=== PATIENT | female | born 1995 | race African-American/Black ===

== ENCOUNTER 2020-08-09 09:23 | Emergency (ER) | payer OTHER, SELFPAY ==
--- NOTE | ~2020-08-09 | US_ITS ---
EXAMINATION: US ABDOMEN LIMITED CLINICAL INFORMATION: Right upper quadrant pain. COMPARISON: CT abdomen and pelvis with IV contrast 08/09/2020. TECHNIQUE: Real-time imaging of the right upper quadrant abdominal viscera. FINDINGS: PANCREAS: The pancreas is normal in size and contour and echogenicity. There is no pancreatic ductal distention or visible retroperitoneal effusion. LIVER: The liver is within normal size and is smooth in contour. Parenchymal echogenicity is homogeneous and within normal. There is no focal hepatic parenchymal lesion. Doppler shows portal flow towards the liver. There is no intrahepatic ductal dilatation. GALLBLADDER: Normal. The gallbladder is physiologically distended without evidence of stones, sludge, polyps, wall thickening or pericholecystic fluid. Negative sonographic Culp's sign. COMMON BILE DUCT: Normal in caliber measuring 0.3 cm in diameter. RIGHT KIDNEY: Normal. No hydronephrosis. No renal calculi or focal parenchymal lesions. The kidney measures 10.0 cm in maximum dimension. FREE FLUID: None. US/US abdomen limited IMPRESSION: No cholelithiasis, gallbladder wall thickening, or ductal dilatation.
--- NOTE | ~2020-08-09 | CT_ITS ---
EXAMINATION: CT ABDOMEN AND PELVIS WITH CONTRAST CLINICAL INFORMATION: Right upper quadrant/flank pain COMPARISON: None TECHNIQUE: Multidetector volumetric images were obtained from the superior aspect of the liver through the pubic symphysis following administration 85 mL of Omnipaque 350 intravenous contrast. Sagittal and coronal reformatted images were obtained on the technologist's workstation. Oral contrast: No This CT examination was performed using dose optimization techniques as appropriate, variously including the following: *Automated exposure control *Adjustment of mA and/or kV according to patient size (this includes techniques or standardized protocols for targeted exams where dose is matched to indication/reason for exam; i.e. extremities or head) *Use of iterative reconstruction technique DLP: 396 mGy-cm FINDINGS: LUNG BASES: The lung bases are clear. The heart size is normal. LIVER, GALLBLADDER, AND BILIARY TREE: The liver is normal in size, shape, and attenuation. No focal hepatic lesion or biliary ductal dilatation is present. The gallbladder is unremarkable with no evidence of radiopaque gallstones, gallbladder wall thickening, or obvious pericholecystic inflammatory changes. PANCREAS: Unremarkable. SPLEEN: Unremarkable. ADRENAL GLANDS: Unremarkable. KIDNEYS AND URETERS: The kidneys are normal in size, shape, and attenuation. No hydronephrosis, hydroureter, or calculi seen. No perinephric stranding. BLADDER: Unremarkable. GASTROINTESTINAL TRACT: There is moderate scattered stool and gas seen throughout the colon without significant distention. Small bowel loops are normal caliber. Appendix is not seen well. No inflammatory process seen abdomen. There is no free air or free fluid. ABDOMINAL WALL: No significant hernia is appreciated. LYMPH NODES: Normal. VASCULAR: The abdominal aorta is normal caliber. There is no aneurysmal dilatation seen. PELVIC VISCERA: The uterus is anteverted and appears unremarkable. No free fluid or free air. OSSEOUS STRUCTURES: No gross bony abnormality seen. CT/CT abdomen pelvis w con IMPRESSION: Moderate constipation. No acute intra-abdominal process seen. There are no radiopaque gallstones or renal calculi.
[2020-08-09 09:38] VITALS: BP 117/72; PULSE 84; RESP 19; TEMP 37.2; O2SAT 100; BMI 26.4
[2020-08-09] MEDS: Ketorolac Tromethamine 30 MG/ML VIAL IVPUSH (10:09)
[2020-08-09] MEDS: 0.9 % Sodium Chloride 1,000 ML 999 ML IVCONT (10:11)
[2020-08-09 10:13] LABS: Basophils Percent Auto 0.3 % (0-2); Eosinophils Absolute Auto 0.1 X10*3/uL (0.0-0.4); Eosinophils Percent Auto 1.3 % (0-4); Hematocrit 36.2 % (37-47); Hemoglobin 12.3 g/dl (12.0-16.0); Imm Gran Abs Auto 0.01 X10*3/uL (0.00-0.03); Imm Gran Pct Auto 0.3 % (0.0-0.4); Lymphocytes Absolute Auto 1.4 X10*3/uL (1.2-4.9); Lymphocytes Percent Auto 36.8 % (20-40); MANUAL DIFF FLAG SCAN; Mean Corpuscular Hemoglobin 32.1 pg (27.0-33.0); Mean Corpuscular Volume 94.5 fL (80-98); Monocytes Absolute Auto 0.5 X10*3/uL (0.1-1.2); Monocytes Percent Auto 12.4 % (2-11); Neutrophils Absolute Auto 1.9 X10*3/uL (2.0-8.3); Neutrophils Percent Auto 48.9 % (45-73); Platelet Count 196 X10*3/uL (160-400); Red Blood Count 3.83 X10*6/uL (4.20-5.50); Red Cell Distribution Width 11.9 % (11.0-16.0); SCAN SMEAR FLAG 1; White Blood Count 3.8 X10*3/uL (4.8-10.8)
[2020-08-09 10:18] LABS: Glucose Urine UA NEG (NEG); Leukocyte Esterase Urine NEG (NEG); Nitrite Urine NEG (NEG); Specific Gravity - Urine >= 1.030 (1.005-1.025); Urine Blood 3+ (NEG); Urine Ketones NEG (NEG); Urine Protein NEG (NEG-TRACE)
[2020-08-09 10:20] LABS: UPreg QC Valid YES; Urine Pregnancy NEGATIVE (NEGATIVE)
[2020-08-09 10:21] LABS: Appearance Urine HAZY; Color Urine YELLOW
[2020-08-09 10:32] LABS: Mucus Urine 1+ /LPF; RBC Urine TNTC /HPF (0); Squamous Epithelial Cell Urine 1+ /LPF; WBC Urine 0 /HPF (0-4)
[2020-08-09 10:38] LABS: SLIDE REVIEW VERIFIED
[2020-08-09 10:48] LABS: HCG Quantitative < 2 mIU/mL
[2020-08-09 11:27] LABS: Alanine Aminotransferase 18 U/L (0-31); Albumin Level 3.9 g/dL (3.5-5.0); Alkaline Phosphatase 55 U/L (39-117); Anion Gap 12 (12-20); Aspartate Amino Transferase 19 U/L (5-31); Bilirubin Total 1.2 mg/dL (0.0-1.0); Blood Urea Nitrogen 9 mg/dL (9-16); Calcium 8.9 mg/dL (8.4-10.2); Carbon Dioxide 24 mmol/L (22-29); Chloride 104 mmol/L (96-108); Creatinine Clr Calc Pharmacy 85.9; Estimated Glomerular Filt Rate > 60; Glucose Random 93 mg/dL (60-115); Lactate Dehydrogenase 248 U/L (122-220); Magnesium 1.8 mg/dL (1.6-2.6); Potassium 3.9 mmol/L (3.3-5.1); Sodium 136 mmol/L (135-145); Total Protein 6.5 g/dL (6.5-8.0)
--- NOTE | 2020-08-09 11:27 | ED.ABDPAIN ---
HPI - Abdominal Pain General Chief Complaint: Abdominal Pain Stated Complaint: flank pain Time Seen by Provider: 08/09/20 09:26 Source: patient Mode of arrival: ambulatory Limitations: no limitations History of Present Illness HPI narrative: 24-year-old female with a past medical history of pericarditis no other medical history or surgical history presenting to the ED with complaints of abdominal pain in the right back/right flank/right upper quadrant over the past 4 days worse since last night with associated chills and constipation. Reports she did have a bowel movement although it was small amount this morning with hard little balls. Denies any measured fevers, dizziness, headaches, lightheadedness, change in vision, nausea/vomiting, sore throat, cough, chest pain, shortness of breath, dysuria, hematuria, black or bloody stools or diarrhea. Denies recent travel or sick contacts. Denies being on any blood thinners. Denies any other symptoms complaints or concerns at this time. MD elicited complaint: abdominal pain and flank pain Pertinent past history: none Onset (ago): day(s) (Four days worse since last night) Pain Consistency: constant Location: RUQ and R flank Severity: moderate Quality: burning and other Radiation: none Migration to: no migration Exacerbating factors: nothing Relieving factors: nothing Associated symptoms: chills and constipation Related Data Date of Last Menstrual Period: 08/09/20 Patient : No Previous Rx's Medication Instructions Recorded acetaminophen [Tylenol Extra 1,000 mg PO QID PRN #14 tab 08/09/20 Strength] docusate sodium [Colace] 100 mg PO BID PRN #14 cap 08/09/20 ibuprofen 800 mg PO Q8H PRN #14 tab 08/09/20 ondansetron HCl [Zofran] 4 mg PO Q8H PRN #14 tab 08/09/20 polyethylene glycol 3350 [Miralax] 17 g PO DAILY #119 g 08/09/20 Allergies Allergy/AdvReac Type Severity Reaction Status Date / Time No Known Allergies Allergy Unverified 12/16/19 19:24 [No Known Allergies*] Review of Systems Review of Systems Constitutional : Positive chills, No Weight loss, No Fever, No Night Sweats, No Fatigue, NoMalaise ENT/Mouth: No ear pain, No sore throat, No Difficulty swallowing Cardiovascular : No Chest Pain, No SOB, No Dyspnea on Exertion, No Orthopnea, NoEdema, No Palpitations Respiratory : No Cough, No Sputum, No Wheezing, No Dyspnea Gastrointestinal : Positive abdominal pain/flank pain, positive constipation, No Nausea, No Vomiting, No Diarrhea, No blood streaked emesis, No coffee-ground emesis, No gross hematemesis, No blood streak stool, No gross hematochezia, No Melena Genitourinary : No irregular bleeding, No Dysuria, No Urinary Frequency, No Hematuria,No Urinary Incontinence, No Urgency, No Flank Pain Musculoskeletal : No joint pain, No Myalgias, No Joint Swelling Skin : No Skin Lesions, No rash Neuro : No Weakness, No Numbness, No Paresthesias, No Loss of Consciousness, NoDizziness, No Headache Psych : No Social Issues, Heme/Lymph: No Bruising, No Bleeding,No Lymphadenopathy Endocrine : No Polyuria, No Polydipsia, No Temperature Intolerance Yes all other systems are reviewed and are negative Physical Exam Vital Signs: Vital Signs: Last Vital Signs Temp 98.6 F 08/09/20 13:21 Pulse 69 08/09/20 13:21 Resp 18 08/09/20 13:21 BP 113/67 08/09/20 13:21 Pulse Ox 97 08/09/20 13:21 Body Mass Index 26.4 vital signs have been reviewed as normal and appeared to be correct. Blood pressure normal. Heart rate normal. Respiration rate normal. Temperature normal. Oxygen saturation normal. Appearance: Alert. Oriented X3. No acute distress. Head: Normal external exam. Normocephalic. Eyes: PERRLA. EOMI. Conjunctiva and sclera normal. Eyelids normal. ENT: Pharynx normal. Uvula midline. Moist mucous membranes. Neck: Normal inspection. Neck supple. FROM. No adenopathy. No meningeal signs. CVS: Normal heart rate and rhythm. Heart sound normal. No murmurs noted. Pulses normal throughout. Respiratory: No respiratory distress. Painless inspiration. Breath sounds normal. No wheezes/rales/rhonchi noted. Chest nontender. No accessory muscle usage noted or decreased air movement noted. Abdomen: Soft and mild tenderness to palpation to right flank/right upper quadrant/right lower quadrant of the abdomen. Nondistended. No guarding. No rigidity. Bowel sounds normal in all 4 quadrants. No distention noted. No organomegaly noted. No visible injury noted. No rebound tenderness. Negative Rovsing sign. Negative obturator's sign. Negative psoas sign. Negative Culp sign. Back: Positive CVA tenderness. Negative left CVA tenderness. Full range of motion noted. Skin: Skin warm and dry. Normal skin color. Normal skin turgor. No rashes/lesions/lacerations noted. Extremities: Extremities exhibit normal range of motion. Extremities nontender. Neuro: Oriented X 3. No motor deficit. No sensory deficit. Reflexes normal. Normal steady gait. Course Course Course Narrative: 15pm - labs reviewed and patient with a white blood cell count at 3000. Total bilirubin 1.2. LDH 248. Lipase 80. Serum quant negative. UA revealed blood otherwise no evidence of UTI. CT scan of abdomen and pelvis revealed constipation moderately although they were unable to see the appendix. Ultrasound of abdomen within normal limits no acute processes were noted. Therefore re-examine the patient and she was tender in the right upper/right lower quadrant/right flank therefore ran this by Dr. Deutsch the general surgeon and she reviewed the imaging she reports that the patient has been having symptoms for approximately 4 days and she reviewed all the images and she agrees with the report she believes early appendicitis is unlikely at this time. - therefore at this time will DC home with symptomatic treatment and return precautions in 24 hours if symptoms persist or symptoms worsen. Patient understands agrees with this plan. MDM - Abdominal Pain MDM Narrative Medical decision making narrative: 9:30am - 24-year-old female presenting to the ED with complaints of abdominal pain in the right back/right flank/right upper quadrant over the past 4 days worse since last night with associated chills and constipation. - Concern for UTI vs pyelonephritis vs kidney stone vs cholelithiasis vs pancreatitis vs appendicitis. - Plan: Labs, UA, UHCG, CT scan of abdomen and pelvis with IV contrast. Provide a L of IV fluids and 30 mg of IV Toradol then re-evaluate. Differential Diagnosis Differential diagnosis: Likely acute appendicitis, calculus of kidney, constipation, ovarian cyst, pancreatitis and renal colic Medical Records Attestation: I reviewed the patient's medical records. Lab Data Attestation: I reviewed the patient's lab results. Result diagrams: 08/09/20 10:05 08/09/20 10:05 Labs: Lab Results 08/09/20 08/09/20 08/09/20 Range/Units 10:04 10:05 10:05 WBC 3.8 L (4.8-10.8) X10*3/uL RBC 3.83 L (4.20-5.50) X10*6/uL Hgb 12.3 (12.0-16.0) g/dl Hct 36.2 L (37-47) % MCV 94.5 (80-98) fL MCH 32.1 (27.0-33.0) pg MCHC 34.0 (31.0-35.0) g/dl RDW 11.9 (11.0-16.0) % Plt Count 196 (160-400) X10*3/uL MPV 9.0 L (9.4-12.3) fL Immature Gran % (Auto) 0.3 (0.0-0.4) % Neut % (Auto) 48.9 (45-73) % Lymph % (Auto) 36.8 (20-40) % [place] % (Auto) 12.4 H (2-11) % Eos % (Auto) 1.3 (0-4) % Baso % (Auto) 0.3 (0-2) % Lymph # (Auto) 1.4 (1.2-4.9) X10*3/uL [place] # (Auto) 0.5 (0.1-1.2) X10*3/uL Eos # (Auto) 0.1 (0.0-0.4) X10*3/uL Baso # (Auto) 0.0 (0.0-0.2) X10*3/uL Abs Immat Gran (auto) 0.01 (0.00-0.03) X10*3/uL Absolute Neuts (auto) 1.9 L (2.0-8.3) X10*3/uL Absolute Nucleated RBC 0.000 (0.0-0.012) X10*3/uL Nucleated RBC % (auto) 0.0 (0.0-0.2) /100WBC Smear Tech's Comments VERIFIED PT (10.8-13.0) SEC INR (0.9-1.1) Sodium 136 (135-145) mmol/L Potassium 3.9 (3.3-5.1) mmol/L Chloride 104 (96-108) mmol/L Carbon Dioxide 24 (22-29) mmol/L Anion Gap 12 (12-20) BUN 9 (9-16) mg/dL Creatinine 0.87 (0.5-1.4) mg/dL Estim Creat Clear Calc 85.9 Estimated GFR > 60 Random Glucose 93 (60-115) mg/dL Calcium 8.9 (8.4-10.2) mg/dL Magnesium 1.8 (1.6-2.6) mg/dL Total Bilirubin 1.2 H (0.0-1.0) mg/dL AST 19 (5-31) U/L ALT 18 (0-31) U/L Alkaline Phosphatase 55 (39-117) U/L Lactate Dehydrogenase Cancelled 248 H Total Protein 6.5 (6.5-8.0) g/dL Albumin 3.9 (3.5-5.0) g/dL Lipase 80 H (8-78) U/L Beta HCG, Quant < 2 mIU/mL Urine Color Urine Appearance Urine pH (5.0-8.0) Ur Specific [place] (1.005-1.025) Urine Protein (NEG-TRACE) MG/DL Urine Glucose (UA) (NEG) MG/DL Urine Ketones (NEG) MG/DL Urine Blood (NEG) Urine Nitrite (NEG) Ur Leukocyte Esterase (NEG) Urine RBC (0) /HPF Urine WBC (0-4) /HPF Ur Squamous Epith Cells /LPF Urine Bacteria /LPF Urine Mucus /LPF Urine Test (NEGATIVE) 08/09/20 08/09/20 08/09/20 Range/Units 10:05 10:05 12:27 WBC (4.8-10.8) X10*3/uL RBC (4.20-5.50) X10*6/uL Hgb (12.0-16.0) g/dl Hct (37-47) % MCV (80-98) fL MCH (27.0-33.0) pg MCHC (31.0-35.0) g/dl RDW (11.0-16.0) % Plt Count (160-400) X10*3/uL MPV (9.4-12.3) fL Immature Gran % (Auto) (0.0-0.4) % Neut % (Auto) (45-73) % Lymph % (Auto) (20-40) % [place] % (Auto) (2-11) % Eos % (Auto) (0-4) % Baso % (Auto) (0-2) % Lymph # (Auto) (1.2-4.9) X10*3/uL [place] # (Auto) (0.1-1.2) X10*3/uL Eos # (Auto) (0.0-0.4) X10*3/uL Baso # (Auto) (0.0-0.2) X10*3/uL Abs Immat Gran (auto) (0.00-0.03) X10*3/uL Absolute Neuts (auto) (2.0-8.3) X10*3/uL Absolute Nucleated RBC (0.0-0.012) X10*3/uL Nucleated RBC % (auto) (0.0-0.2) /100WBC Smear Tech's Comments PT 14.5 H (10.8-13.0) SEC INR 1.2 H (0.9-1.1) Sodium (135-145) mmol/L Potassium (3.3-5.1) mmol/L Chloride (96-108) mmol/L Carbon Dioxide (22-29) mmol/L Anion Gap (12-20) BUN (9-16) mg/dL Creatinine (0.5-1.4) mg/dL Estim Creat Clear Calc Estimated GFR Random Glucose (60-115) mg/dL Calcium (8.4-10.2) mg/dL Magnesium (1.6-2.6) mg/dL Total Bilirubin (0.0-1.0) mg/dL AST (5-31) U/L ALT (0-31) U/L Alkaline Phosphatase (39-117) U/L Lactate Dehydrogenase Total Protein (6.5-8.0) g/dL Albumin (3.5-5.0) g/dL Lipase (8-78) U/L Beta HCG, Quant mIU/mL Urine Color YELLOW Urine Appearance HAZY Urine pH 6.0 (5.0-8.0) Ur Specific [place] >= 1.030 H (1.005-1.025) Urine Protein NEG (NEG-TRACE) MG/DL Urine Glucose (UA) NEG (NEG) MG/DL Urine Ketones NEG (NEG) MG/DL Urine Blood 3+ H (NEG) Urine Nitrite NEG (NEG) Ur Leukocyte Esterase NEG (NEG) Urine RBC TNTC H (0) /HPF Urine WBC 0 (0-4) /HPF Ur Squamous Epith Cells 1+ /LPF Urine Bacteria NONE /LPF Urine Mucus 1+ /LPF Urine Test NEGATIVE (NEGATIVE) Imaging Data CT scan of abdomen pelvis with IV contrast: Attestation: I personally reviewed and interpreted this imaging study as follows: Radiologist's impression: FINDINGS: LUNG BASES: The lung bases are clear. The heart size is normal. LIVER, GALLBLADDER, AND BILIARY TREE: The liver is normal in size, shape, and attenuation. No focal hepatic lesion or biliary ductal dilatation is present. The gallbladder is unremarkable with no evidence of radiopaque gallstones, gallbladder wall thickening, or obvious pericholecystic inflammatory changes. PANCREAS: Unremarkable. SPLEEN: Unremarkable. ADRENAL GLANDS: Unremarkable. KIDNEYS AND URETERS: The kidneys are normal in size, shape, and attenuation. No hydronephrosis, hydroureter, or calculi seen. No perinephric stranding. BLADDER: Unremarkable. GASTROINTESTINAL TRACT: There is moderate scattered stool and gas seen throughout the colon without significant distention. Small bowel loops are normal caliber. Appendix is not seen well. No inflammatory process seen abdomen. There is no free air or free fluid. ABDOMINAL WALL: No significant hernia is appreciated. LYMPH NODES: Normal. VASCULAR: The abdominal aorta is normal caliber. There is no aneurysmal dilatation seen. PELVIC VISCERA: The uterus is anteverted and appears unremarkable. No free fluid or free air. OSSEOUS STRUCTURES: No gross bony abnormality seen. CT/CT abdomen pelvis w con IMPRESSION: Moderate constipation. No acute intra-abdominal process seen. There are no radiopaque gallstones or renal calculi. Abdominal ultrasound: Attestation: I personally reviewed and interpreted this imaging study as follows: Radiologist's impression: FINDINGS: PANCREAS: The pancreas is normal in size and contour and echogenicity. There is no pancreatic ductal distention or visible retroperitoneal effusion. LIVER: The liver is within normal size and is smooth in contour. Parenchymal echogenicity is homogeneous and within normal. There is no focal hepatic parenchymal lesion. Doppler shows portal flow towards the liver. There is no intrahepatic ductal dilatation. GALLBLADDER: Normal. The gallbladder is physiologically distended without evidence of stones, sludge, polyps, wall thickening or pericholecystic fluid. Negative sonographic Culp's sign. COMMON BILE DUCT: Normal in caliber measuring 0.3 cm in diameter. RIGHT KIDNEY: Normal. No hydronephrosis. No renal calculi or focal parenchymal lesions. The kidney measures 10.0 cm in maximum dimension. FREE FLUID: None. US/US abdomen limited IMPRESSION: No cholelithiasis, gallbladder wall thickening, or ductal dilatation. Critical Care Time Critical Care Time Critical Care Time: Yes Total Critical Care Time: 60 Attestation: I personally attest to this time spent taking care of the patient Discharge Plan Discharge Clinical Impression: Constipation, Abdominal pain Patient Disposition: Home, Self-Care Instructions: Constipation (ED), High Fiber Diet (ED), Abdominal Pain (ED) Prescriptions: New docusate sodium [Colace] 100 mg capsule 100 mg PO BID PRN (Reason: Constipation) Qty: 14 RF: 0 polyethylene glycol 3350 [Miralax] 17 gram/dose powder 17 g PO DAILY Qty: 119 RF: 0 ibuprofen 800 mg tablet 800 mg PO Q8H PRN (Reason: pain) Qty: 14 RF: 0 ondansetron HCl [Zofran] 4 mg tablet 4 mg PO Q8H PRN (Reason: nausea and vomiting) Qty: 14 RF: 0 acetaminophen [Tylenol Extra Strength] 500 mg tablet 1,000 mg PO QID PRN (Reason: fever or pain) Qty: 14 RF: 0 Referrals: Physician,None [Primary Care Provider] - 2 days (Your PCP) Stand Alone Forms: Work/School Release Print Language: Turkmen [facility] Past Medical History Attestation statement: The following information was validated with the patient. Date of Last Menstrual Period: 08/09/20 Social History Social History Advance Directives: No Advance Directives Information Provided: No Patient : No
[2020-08-09 11:43] LABS: Lipase 80 U/L (8-78)
[2020-08-09] MEDS: iohexoL 350 MG/ML 100 ML INFUS..BTL IV (12:08)
[2020-08-09 12:50] LABS: INTERNATIONAL NORM RATIO 1.2 (0.9-1.1); Prothrombin Time 14.5 SEC (10.8-13.0)
[2020-08-09 13:21] VITALS: BP 113/67; PULSE 69; RESP 18; TEMP 37; O2SAT 97
== END 2020-08-09 15:55 | disposition home or self-care (01) ==
PROVIDERS: Physician Assistant Medical; Emergency Provider Emergency Medicine Emergency Medical Services
DX: K59.00 Constipation, unspecified (principal); R10.9 Unspecified abdominal pain; R68.83 Chills (without fever); D72.819 Decreased white blood cell count, unspecified
CPT/HCPCS: 36415; 74177; 76705; 80053; 81001; 81025; 83615; 83690; 83735; 84702; 85025; 85610; 96361; 96374; 99283; 99291; J1885; Q9967

== ENCOUNTER 2020-08-14 16:41 | Emergency (ER) | payer OTHER, SELFPAY ==
[2020-08-14 19:40] VITALS: BP 117/78; PULSE 91; RESP 18; TEMP 36.9; O2SAT 99; BMI 26.4
--- NOTE | 2020-08-14 20:38 | ED_ITS ---
HPI - URI/Sore Throat General Chief Complaint: Upper Respiratory Symptoms Stated Complaint: sore throat diff breathing, cough Source: patient Mode of arrival: ambulatory Limitations: no limitations History of Present Illness HPI Narrative: 24-year-old female with no significant past medical history presents with sore throat and intermittent shortness of breath. She states that she has noted her tonsils to have white spots but denies having fevers or chills. MD elicited complaint: sore throat Onset (ago): day(s) (For) Consistency: constant Severity: moderate Pain scale (0-10): 7 Able to tolerate fluids by mouth: Yes Exacerbating factors: swallowing and speaking Relieving factors: gargling Associated symptoms: shortness of breath Treatments prior to arrival: acetaminophen and ibuprofen Related Data Previous Rx's Medication Instructions Recorded acetaminophen [Tylenol Extra 1,000 mg PO QID PRN #14 tab 08/09/20 Strength] docusate sodium [Colace] 100 mg PO BID PRN #14 cap 08/09/20 ibuprofen 800 mg PO Q8H PRN #14 tab 08/09/20 ondansetron HCl [Zofran] 4 mg PO Q8H PRN #14 tab 08/09/20 polyethylene glycol 3350 [Miralax] 17 g PO DAILY #119 g 08/09/20 amoxicillin-pot clavulanate 1 tab PO Q12H 10 Days #20 tab 08/14/20 [Augmentin] lidocaine HCl [Lidocaine Viscous] 1 appl MUCOUS MEMBRANE TID PRN 08/14/20 #100 ml prednisone 60 mg PO DAILY 5 Days #15 tab 08/15/20 Allergies Allergy/AdvReac Type Severity Reaction Status Date / Time No Known Allergies Allergy Verified 08/14/20 19:39 [No Known Allergies*] Review of Systems Review of Systems: Constitutional: No Fever, No Chills ENT/Mouth: No Ear Pain, No Hoarseness, positive sore throat Eyes: No Eye Pain, No Swelling, No Redness, No Foreign Body Cardiovascular: No Chest Pain, positive intermittent SOB Respiratory: No Cough, No Dyspnea Gastrointestinal: No Nausea, No Vomiting, No Diarrhea, No abdominal Pain Genitourinary: No Dysuria, No Hematuria Musculoskeletal: No joint pain, No Myalgias, No Joint Swelling Skin: No Skin lacerations, No rash Neuro: No Weakness, No Numbness, No Paresthesias, No Loss of Consciousness, No Dizziness, No Headache Psych: No Anxiety/Panic, No Depression Heme/Lymph: no easy bruising, no Lymphadenopathy Endocrine: No Polyuria, No Polydipsia Yes all other systems are reviewed and are negative [facility] Past Medical History Attestation statement: The following information was validated with the patient. Source: old records reviewed Medical History (Updated 08/15/20 @ 00:01 by Cristina Adan) No known health problems Social History Social History Advance Directives: No Advance Directives Information Provided: No Patient : No Physical Exam Vital Signs: Vital Signs: Last Vital Signs Temp 99.4 F 08/14/20 21:19 Pulse 81 08/14/20 21:19 Resp 20 08/14/20 21:19 BP 135/80 08/14/20 21:19 Pulse Ox 100 08/14/20 21:19 Body Mass Index 26.4 Appearance: Alert. Oriented X3. No acute distress. Eyes: Pupils equal, round and reactive to light. ENT: Pharynx erythematous with bilateral tonsillar exudates. No cervical lymphadenopathy noted. Neck: Normal inspection. Neck supple. CVS: Normal heart rate and rhythm. Pulses normal. Respiratory: No respiratory distress. Breath sounds normal. Abdomen: Soft and nontender. Skin: Skin warm and dry. Normal skin color. Normal skin turgor. Extremities: No lower extremity edema. Neuro: No motor deficit. No sensory deficit. Course Course Course Narrative: 24-year-old female presents with sore throat with white tonsillar exudates. COVID tested negative, will order strep and mono test. Strep is positive, will treat with Augmentin and lidocaine gargle. Patient verbalized understanding of and agrees to plan of care discharge home. 1:40 a.m. it is noted the patient does have a positive mono, I did call to info rm her of the results. Will add prednisone 60 mg for the next 5 days. Patient verbalized understanding of need for further follow-up with primary care physician, and no contact sports. MDM - URI/Sore Throat Differential Diagnosis Differential diagnosis: Likely upper respiratory infection, sinusitis, viral infection, bronchitis, influenza and pharyngitis Medical Records Attestation: I reviewed the patient's medical records. Lab Data Attestation: I reviewed the patient's lab results. Labs: Lab Results 08/14/20 08/14/20 08/14/20 Range/Units 20:34 21:14 21:14 COVID-19 (TERRENCE) Negative (Negative) COVID-19 Clin Com See Note Monoscreen Positive A (Negative) S. pyogenes GrpA RACHEL Positive A (Negative) Discharge Plan Discharge Clinical Impression: Acute streptococcal pharyngitis Patient Disposition: Home, Self-Care Instructions: Strep Throat (ED) Additional Instructions: You were evaluated for throat pain. Your strep test is positive. Please take Augmentin twice a day for the next 10 days. Finish the entire course of this antibiotic. Use viscous lidocaine for pain. Use this medication sparingly. Thank you for choosing this emergency department for evaluation. Please follow-up with primary care physician as needed. Return to the emergency department for any new, concerning, or worsening symptoms. Prescriptions: New amoxicillin-pot clavulanate [Augmentin] 875-125 mg tablet 1 tab PO Q12H 10 Days Qty: 20 RF: 0 lidocaine HCl [Lidocaine Viscous] 2 % solution 1 appl mucous membrane TID PRN (Reason: pain) Qty: 100 RF: 0 prednisone 20 mg tablet 60 mg PO DAILY 5 Days Qty: 15 RF: 0 No Action docusate sodium [Colace] 100 mg capsule 100 mg PO BID PRN (Reason: Constipation) Qty: 14 RF: 0 polyethylene glycol 3350 [Miralax] 17 gram/dose powder 17 g PO DAILY Qty: 119 RF: 0 ibuprofen 800 mg tablet 800 mg PO Q8H PRN (Reason: pain) Qty: 14 RF: 0 ondansetron HCl [Zofran] 4 mg tablet 4 mg PO Q8H PRN (Reason: nausea and vomiting) Qty: 14 RF: 0 acetaminophen [Tylenol Extra Strength] 500 mg tablet 1,000 mg PO QID PRN (Reason: fever or pain) Qty: 14 RF: 0 Stand Alone Forms: Work/School Release Interventions: ED Discharge Assessment Last Done: 08/14/20 22:50 Discharge Date/Time: 08/14/20 22:52
[2020-08-14 20:58] LABS: COVID-19 Test Negative (Negative)
[2020-08-14] MEDS: Ibuprofen 600 MG TABLET PO (21:10)
[2020-08-14] MEDS: Lidocaine HCl Viscous 2 % 15 ML SOLUTION MUCOUS MEM (21:10)
[2020-08-14 21:19] VITALS: BP 135/80; PULSE 81; RESP 20; TEMP 37.4; O2SAT 100
[2020-08-14 21:49] LABS: Strep A Nucleic Acid Positive (Negative)
[2020-08-14 22:05] LABS: Monotest Positive (Negative)
[2020-08-14] MEDS: Amoxicillin/Potassium Clav 875 MG TABLET PO (22:49)
== END 2020-08-14 22:52 | disposition home or self-care (01) ==
PROVIDERS: Nurse Practitioner Family; Emergency Provider Emergency Medicine Emergency Medical Services
DX: J02.0 Streptococcal pharyngitis (principal); Z20.822 Contact with and (suspected) exposure to COVID-19
CPT/HCPCS: 36415; 86308; 87635; 87651; 99283; 99284

== ENCOUNTER 2021-05-21 21:43 | Emergency (ER) | payer OTHER, SELFPAY ==
--- NOTE | ~2021-05-21 | CT_ITS ---
EXAMINATION: CT ABDOMEN AND PELVIS WITH CONTRAST CLINICAL INFORMATION: Left upper quadrant pain COMPARISON: CT from 08/09/2020 TECHNIQUE: Multidetector volumetric images were obtained from the superior aspect of the liver through the pubic symphysis following administration 85 mL of Omnipaque 350 intravenous contrast. Sagittal and coronal reformatted images were obtained on the technologist's workstation. Oral contrast: No This CT examination was performed using dose optimization techniques as appropriate, variously including the following: *Automated exposure control *Adjustment of mA and/or kV according to patient size (this includes techniques or standardized protocols for targeted exams where dose is matched to indication/reason for exam; i.e. extremities or head) *Use of iterative reconstruction technique DLP: 423 mGy-cm FINDINGS: LUNG BASES: The visualized lung bases are unremarkable. LIVER, GALLBLADDER, AND BILIARY TREE: The liver is normal in size, shape, and attenuation. No focal hepatic lesion or biliary ductal dilatation is present. The gallbladder is contracted with no evidence of radiopaque gallstones, gallbladder wall thickening, or obvious pericholecystic inflammatory changes. PANCREAS: Unremarkable. SPLEEN: Attenuation of the spleen is heterogeneous. The spleen is normal in size, decreased in prominence from prior. ADRENAL GLANDS: Unremarkable. KIDNEYS AND URETERS: The kidneys are normal in size, shape, and attenuation. No hydronephrosis, hydroureter, or calculi seen. No perinephric stranding. BLADDER: Unremarkable. GASTROINTESTINAL TRACT: The small and large bowel are unremarkable. The appendix is unremarkable. ABDOMINAL WALL: No significant hernia is appreciated. LYMPH NODES: Normal. VASCULAR: Normal caliber aorta. The splenic vein is patent. The portal vein is patent. PELVIC VISCERA: The uterus and adnexa are unremarkable. OSSEOUS STRUCTURES: No acute or suspicious osseous abnormality. CT/CT abdomen pelvis w con IMPRESSION: Decreased size of the spleen, now normal in size. There is diffuse heterogeneity of the splenic attenuation which is nonspecific. This could be associated with contrast bolus timing, although multiple splenic infarcts are a consideration. Fleischner guidelines were followed.
[2021-05-21 21:55] VITALS: BP 125/70; PULSE 71; RESP 17; TEMP 36.8; O2SAT 99; BMI 23.6
[2021-05-21 23:00] LABS: Basophils Percent Auto 0.2 % (0-2); Eosinophils Absolute Auto 0.3 X10*3/uL (0.0-0.4); Eosinophils Percent Auto 6.3 % (0-4); Hematocrit 37.7 % (37.0-47.0); Hemoglobin 12.9 g/dl (12.0-16.0); Imm Gran Abs Auto 0.01 X10*3/uL (0.00-0.03); Imm Gran Pct Auto 0.2 % (0.0-0.4); Lymphocytes Absolute Auto 2.6 X10*3/uL (1.2-4.9); MANUAL DIFF FLAG NO; Mean Corpuscular HGB Conc 34.2 g/dl (31.0-35.0); Mean Corpuscular Hemoglobin 32.2 pg (27.0-33.0); Mean Platelet Volume 9.3 fL (9.4-12.3); Monocytes Absolute Auto 0.3 X10*3/uL (0.1-1.2); Monocytes Percent Auto 6.3 % (2-11); Neutrophils Absolute Auto 1.7 x10*3/uL (2.0-8.3); Platelet Count 255 X10*3/uL (160-400); Red Blood Count 4.01 X10*6/uL (4.20-5.50); Red Cell Distribution Width 11.4 % (11.0-16.0)
[2021-05-21 23:13] LABS: COVID-19 Test Negative (Negative)
[2021-05-21 23:17] LABS: Alanine Aminotransferase 10 U/L (0-31); Albumin Level 4.2 g/dL (3.5-5.0); Alkaline Phosphatase 50 U/L (39-117); Anion Gap 9 (12-20); Aspartate Amino Transferase 17 U/L (5-31); Bilirubin Total 0.7 mg/dL (0.0-1.0); Blood Urea Nitrogen 17 mg/dL (9-16); Calcium 9.7 mg/dL (8.4-10.2); Carbon Dioxide 28 mmol/L (22-29); Chloride 105 mmol/L (96-108); Estimated Glomerular Filt Rate > 60; Glucose Random 86 mg/dL (60-115); Potassium 3.9 mmol/L (3.3-5.1); Sodium 138 mmol/L (135-145); Total Protein 6.5 g/dL (6.5-8.0)
[2021-05-22 00:31] LABS: Appearance Urine HAZY; Color Urine YELLOW; Glucose Urine UA NEG (NEG); Leukocyte Esterase Urine NEG (NEG); Nitrite Urine NEG (NEG); Specific Gravity - Urine 1.025 (1.005-1.025); UACC Culture Trigger NO; Urine Blood 3+ (NEG); Urine Ketones NEG (NEG); Urine Protein NEG (NEG-TRACE)
[2021-05-22 00:33] LABS: UPreg QC Valid YES; Urine Pregnancy NEGATIVE (NEGATIVE)
[2021-05-22 00:49] LABS: Bacteria Urine TRACE /LPF; RBC Urine 50-75 /HPF (0); Squamous Epithelial Cell Urine 2+ /LPF; WBC Urine 0-2 /HPF (0-4)
[2021-05-22 00:53] VITALS: BP 122/74; PULSE 64; RESP 16; TEMP 36.8; O2SAT 99
--- NOTE | 2021-05-22 01:40 | ED_ITS ---
HPI - Abdominal Pain General Chief Complaint: Abdominal Pain Stated Complaint: spleen, bulging, sharp pain Time Seen by Provider: 05/22/21 01:17 Source: patient Mode of arrival: ambulatory History of Present Illness HPI narrative: 25-year-old female without significant past medical history presents with increasing left upper quadrant pain and intermittent distension that she states has been ongoing for 2 months but has worsened over the past 1 day with associated nausea. Patient states that the sharp pain radiates into her left shoulder, worsens with deep inspiration. She denies any traumatic event, constipation, alcohol or substance use. She does have a history of mononucleosis diagnosed 07/2020 but otherwise denies any night sweats, unexplained weight loss. Related Data Previous Rx's Medication Instructions Recorded acetaminophen 500 mg tablet 1,000 mg PO QID PRN #14 tab 08/09/20 (Tylenol Extra Strength) docusate sodium 100 mg capsule 100 mg PO BID PRN #14 cap 08/09/20 (Colace) ibuprofen 800 mg tablet 800 mg PO Q8H PRN #14 tab 08/09/20 ondansetron HCl 4 mg tablet 4 mg PO Q8H PRN #14 tab 08/09/20 (Zofran) polyethylene glycol 3350 17 17 g PO DAILY #119 g 08/09/20 gram/dose oral powder (Miralax) amoxicillin 875 mg-potassium 1 tab PO Q12H 10 Days #20 tab 08/14/20 clavulanate 125 mg tablet (Augmentin) lidocaine HCl 2 % mucosal solution 1 appl MUCOUS MEMBRANE TID PRN 08/14/20 (Lidocaine Viscous) #100 ml prednisone 20 mg tablet 60 mg PO DAILY 5 Days #15 tab 08/15/20 Allergies Allergy/AdvReac Type Severity Reaction Status Date / Time No Known Allergies Allergy Verified 05/21/21 21:55 [No Known Allergies*] Review of Systems Review of Systems Pertinent positives and negatives as stated in HPI 10 point review of systems is otherwise negative. PMFSH Past Medical History Source: nursing notes reviewed Medical History No known health problems Social History Social History Advance Directives: No Patient : No Physical Exam ED Vital Signs: Vital Signs - 24 hr 05/21/21 21:55 05/22/21 00:53 05/22/21 02:00 Temperature 98.3 F 98.3 F Pulse Rate 71 64 Respiratory Rate 17 16 16 Blood Pressure 125/70 122/74 Pulse Oximetry 99 99 BMI result Body Mass Index 23.6 VITAL SIGNS: Reviewed. GENERAL: Well developed, well nourished, in no acute distress. HEAD: Normocephalic/atraumatic EYES: PERRLA, EOMI EARS: Ext canals without abnormality OROPHARYNX: no oral lesions noted, posterior pharynx clear LUNGS: Normal breath sounds. No adventitious sounds or accessory muscle use. SpO2<99>; CHEST WALL: There is no crepitus, erythema, induration, deformity CARDIOVASCULAR: Regular rate and rhythm without noted murmurs ABDOMEN: Soft, non-tender, non-distended with bowel sounds, no CVA tenderness MUSCULOSKELETAL: No tenderness, deformities, or effusions noted on gross inspection. EXTREMITIES: No cyanosis, clubbing or edema. SKIN: Inspection of the skin reveals no rashes NEUROLOGIC: Alert and oriented x 4. Strength and sensation to light touch were grossly intact x 4. Course Course Course Narrative: 25-year-old female with history and clinical presentation suggestive of possible pancreatitis, gastritis but history and clinical exam not consistent with renal colic, there is no evidence to suggest traumatic injury to either the chest wall or left flank and there are no fevers/night sweats,new cough to suggest pneumonia, or unexplained weight loss. Patient does have history of mon onucleosis in July of last year. Review of all investigations shows an elevated lipase for which patient received 2 L of IV fluids although clinical exam is benign. On review of the CT scan demonstrates a decrease in the size of her spleen when compared to July of 2020 which could be explained by resolution of mononucleosis infection but both were within normal limits for size. In addition, the CT scan demonstrated heterogeneity of the spleen with suggestion of possible multiple splenic infarct s and on further discussion with the radiologist he states that this heterogeneity is inconsistent with IV contrast timing in recommended further dynamic imaging studies to better characterize. In addition, I discussed the case with the inpatient hospitalist who recommended LDH and cardiolipin. The LDH was returned as within normal limits in the cardiolipin is pending. In addition the recommendation was for he referral to hematology/oncology. All these results and plans were discussed with the patient at bedside and she understands that she will call the office of Hematology/Oncology today to schedule an appointment. She is otherwise discharged home in stable condition. MDM - Abdominal Pain Lab Data Result diagrams: 05/21/21 22:54 05/21/21 22:54 Labs: Lab Results 05/21/21 05/21/21 05/21/21 Range/Units 22:54 22:54 22:54 WBC 5.0 (4.8-10.8) X10*3/uL RBC 4.01 L (4.20-5.50) X10*6/uL Hgb 12.9 (12.0-16.0) g/dl Hct 37.7 (37.0-47.0) % MCV 94.0 (80.0-98.0) fL MCH 32.2 (27.0-33.0) pg MCHC 34.2 (31.0-35.0) g/dl RDW 11.4 (11.0-16.0) % Plt Count 255 (160-400) X10*3/uL MPV 9.3 L (9.4-12.3) fL Immature Gran % (Auto) 0.2 (0.0-0.4) % Neut % (Auto) 34.0 L (45-73) % Lymph % (Auto) 53.0 H (20-40) % [place] % (Auto) 6.3 (2-11) % Eos % (Auto) 6.3 H (0-4) % Baso % (Auto) 0.2 (0-2) % Lymph # (Auto) 2.6 (1.2-4.9) X10*3/uL [place] # (Auto) 0.3 (0.1-1.2) X10*3/uL Eos # (Auto) 0.3 (0.0-0.4) X10*3/uL Baso # (Auto) 0.0 (0.0-0.2) X10*3/uL Abs Immat Gran (auto) 0.01 (0.00-0.03) X10*3/uL Absolute Neuts (auto) 1.7 L (2.0-8.3) x10*3/uL Absolute Nucleated RBC 0.000 (0.0-0.012) X10*3/uL Nucleated RBC % (auto) 0.0 (0.0-0.2) /100WBC Sodium 138 (135-145) mmol/L Potassium 3.9 (3.3-5.1) mmol/L Chloride 105 (96-108) mmol/L Carbon Dioxide 28 (22-29) mmol/L Anion Gap 9 L (12-20) BUN 17 H (9-16) mg/dL Creatinine 0.99 (0.5-1.4) mg/dL Estim Creat Clear Calc 66.0 Estimated GFR > 60 Random Glucose 86 (60-115) mg/dL Calcium 9.7 D (8.4-10.2) mg/dL Total Bilirubin 0.7 (0.0-1.0) mg/dL AST 17 (5-31) U/L ALT 10 (0-31) U/L Alkaline Phosphatase 50 (39-117) U/L Lactate Dehydrogenase 167 (122-220) U/L Total Protein 6.5 (6.5-8.0) g/dL Albumin 4.2 (3.5-5.0) g/dL Triglycerides 100 mg/dL Cholesterol 149 mg/dL LDL Cholesterol, Calc 63 mg/dl HDL Cholesterol 66 mg/dL Lipase 247 H (8-78) U/L Urine Color Urine Appearance Urine pH (5.0-8.0) Ur Specific Will[place] (1.005-1.025) Urine Protein (NEG-TRACE) MG/DL Urine Glucose (UA) (NEG) MG/DL Urine Ketones (NEG) MG/DL Urine Blood (NEG) Urine Nitrite (NEG) Ur Leukocyte Esterase (NEG) Urine RBC (0) /HPF Urine WBC (0-4) /HPF Ur Squamous Epith Cells /LPF Urine Bacteria /LPF Urine Test (NEGATIVE) COVID-19 (TERRENCE) Negative (Negative) COVID-19 Clin Com See Note 05/22/21 05/22/21 Range/Units 00:25 00:25 WBC (4.8-10.8) X10*3/uL RBC (4.20-5.50) X10*6/uL Hgb (12.0-16.0) g/dl Hct (37.0-47.0) % MCV (80.0-98.0) fL MCH (27.0-33.0) pg MCHC (31.0-35.0) g/dl RDW (11.0-16.0) % Plt Count (160-400) X10*3/uL MPV (9.4-12.3) fL Immature Gran % (Auto) (0.0-0.4) % Neut % (Auto) (45-73) % Lymph % (Auto) (20-40) % [place] % (Auto) (2-11) % Eos % (Auto) (0-4) % Baso % (Auto) (0-2) % Lymph # (Auto) (1.2-4.9) X10*3/uL [place] # (Auto) (0.1-1.2) X10*3/uL Eos # (Auto) (0.0-0.4) X10*3/uL Baso # (Auto) (0.0-0.2) X10*3/uL Abs Immat Gran (auto) (0.00-0.03) X10*3/uL Absolute Neuts (auto) (2.0-8.3) x10*3/uL Absolute Nucleated RBC (0.0-0.012) X10*3/uL Nucleated RBC % (auto) (0.0-0.2) /100WBC Sodium (135-145) mmol/L Potassium (3.3-5.1) mmol/L Chloride (96-108) mmol/L Carbon Dioxide (22-29) mmol/L Anion Gap (12-20) BUN (9-16) mg/dL Creatinine (0.5-1.4) mg/dL Estim Creat Clear Calc Estimated GFR Random Glucose (60-115) mg/dL Calcium (8.4-10.2) mg/dL Total Bilirubin (0.0-1.0) mg/dL AST (5-31) U/L ALT (0-31) U/L Alkaline Phosphatase (39-117) U/L Lactate Dehydrogenase (122-220) U/L Total Protein (6.5-8.0) g/dL Albumin (3.5-5.0) g/dL Triglycerides mg/dL Cholesterol mg/dL LDL Cholesterol, Calc mg/dl HDL Cholesterol mg/dL Lipase (8-78) U/L Urine Color YELLOW Urine Appearance HAZY Urine pH 6.0 (5.0-8.0) Ur Specific Will[place] 1.025 (1.005-1.025) Urine Protein NEG (NEG-TRACE) MG/DL Urine Glucose (UA) NEG (NEG) MG/DL Urine Ketones NEG (NEG) MG/DL Urine Blood 3+ H (NEG) Urine Nitrite NEG (NEG) Ur Leukocyte Esterase NEG (NEG) Urine RBC 50-75 H (0) /HPF Urine WBC 0-2 (0-4) /HPF Ur Squamous Epith Cells 2+ /LPF Urine Bacteria TRACE /LPF Urine Test NEGATIVE (NEGATIVE) COVID-19 (TERRENCE) (Negative) COVID-19 Clin Com Discharge Plan Discharge Clinical Impression: Elevated lipase, History of mononucleosis, Splenic infarct Patient Disposition: Home, Self-Care Instructions: Abdominal Pain (ED) Additional Instructions: You will call the office of Hematology/Oncology today to schedule your appointment. The note from this visit will be sent to their office. You have been given a list of potential primary care providers. Return to the emergency room for any worsening of symptoms. Prescriptions: No Action docusate sodium [Colace] 100 mg capsule 100 mg PO BID PRN (Reason: Constipation) Qty: 14 0RF polyethylene glycol 3350 [Miralax] 17 gram/dose powder 17 g PO DAILY Qty: 119 0RF ibuprofen 800 mg tablet 800 mg PO Q8H PRN (Reason: pain) Qty: 14 0RF ondansetron HCl [Zofran] 4 mg tablet 4 mg PO Q8H PRN (Reason: nausea and vomiting) Qty: 14 0RF acetaminophen [Tylenol Extra Strength] 500 mg tablet 1,000 mg PO QID PRN (Reason: fever or pain) Qty: 14 0RF amoxicillin-pot clavulanate [Augmentin] 875-125 mg tablet 1 tab PO Q12H 10 Days Qty: 20 0RF Rx Instructions: Strep pharyngitis lidocaine HCl [Lidocaine Viscous] 2 % solution 1 appl mucous membrane TID PRN (Reason: pain) Qty: 100 0RF Rx Instructions: Please use 10 mL per dose. prednisone 20 mg tablet 60 mg PO DAILY 5 Days Qty: 15 0RF Referrals: Dorys Cassidy MD [Physician] - 2 days (25-year-old female with 2 months of left upper quadrant pain, no B symptoms, no trauma, CT scan shows heterogeneous spleen suggestive of possible multiple splenic infarcts. Radiology recommends dynamic imaging studies, LDH is within normal limits, cardiolipin is pending.)
[2021-05-22] MEDS: Acetaminophen 325 MG TABLET 975 MG PO (01:56)
[2021-05-22] MEDS: Magnesium Hydrox/Alum Hydrox 30 ML ORAL.SUSP PO (01:57)
[2021-05-22] MEDS: Lidocaine HCl Viscous 2 % 15 ML SOLUTION 10 ML MUCOUS MEM (01:57)
[2021-05-22 02:00] VITALS: RESP 16
[2021-05-22] MEDS: Ketorolac Tromethamine 15 MG/ML VIAL IM (02:00)
[2021-05-22 02:03] LABS: Lipase 247 U/L (8-78)
[2021-05-22] MEDS: 0.9 % Sodium Chloride 2,000 ML 999 ML IV (02:13)
[2021-05-22] MEDS: iohexoL 350 MG/ML 100 ML INFUS..BTL 85 ML IV (02:33)
[2021-05-22 03:42] LABS: Cholesterol 149 mg/dL; HDL Cholesterol 66 mg/dL; LDL Cholesterol Calculated 63 mg/dl; Triglycerides 100 mg/dL
[2021-05-22 04:37] LABS: Lactate Dehydrogenase 167 U/L (122-220)
[2021-05-22 05:15] VITALS: BP 112/74; PULSE 62; RESP 16; TEMP 36.5; O2SAT 98
[2021-05-23 17:56] LABS: Cardiolipin IgG Ab <2.0 GPL-U/mL; Cardiolipin IgM Ab <2.0 MPL-U/mL
== END 2021-05-22 05:22 | disposition home or self-care (01) ==
PROVIDERS: Emergency Provider Student in an Organized Health Care Education/Training Program
DX: R74.8 Abnormal levels of other serum enzymes (principal); D73.5 Infarction of spleen; R10.12 Left upper quadrant pain; Z20.822 Contact with and (suspected) exposure to COVID-19; Z86.19 Personal history of other infectious and parasitic diseases
CPT/HCPCS: 36415; 74177; 80053; 80061; 81001; 81025; 83615; 83690; 85025; 86147; 87635; 96360; 96361; 96372; 99284; J1885; Q9967

== ENCOUNTER 2021-05-30 16:22 | Outpatient (REF) | payer OTHER, SELFPAY ==
--- NOTE | ~2021-05-30 | US_ITS ---
EXAMINATION: US ABDOMEN COMPLETE CLINICAL INFORMATION: Question of splenic infarct seen on CT scan. COMPARISON: CT abdomen and pelvis 05/22/2021. Ultrasound abdomen limited 08/09/2020. TECHNIQUE: Real-time imaging of the abdominal viscera. FINDINGS: PANCREAS: The head and body appear unremarkable. The tail is obscured by bowel gas. ABDOMINAL AORTA: The proximal, mid, and distal segments are normal in caliber. INFERIOR VENA CAVA: Visualized portions are normal. LIVER: Normal. The liver is normal in size. The liver contour is normal. Parenchymal echogenicity is normal. No focal hepatic lesion. There is no intrahepatic biliary duct dilatation seen. GALLBLADDER: Normal. The gallbladder is physiologically distended without evidence of stones, sludge, polyps, wall thickening or pericholecystic fluid. COMMON BILE DUCT: Normal in caliber measuring 0.2 cm in diameter. RIGHT KIDNEY: Normal. No hydronephrosis. No renal calculi or focal parenchymal lesions. The kidney measures 10.1 cm in maximum dimension. LEFT KIDNEY: Normal. No hydronephrosis. No renal calculi or focal parenchymal lesions. The kidney measures 10.4 cm in maximum dimension. SPLEEN: Normal. The spleen measures 9.2 cm in maximum dimension. No splenic infarcts identified. FREE FLUID: None. US/US abdomen complete IMPRESSION: No splenic infarcts identified on this ultrasound study. Unremarkable abdominal ultrasound study.
== END 2021-05-30 16:23 | disposition home or self-care (01) ==
LOC: HO.US 16:22
PROVIDERS: Visit Provider Internal Medicine Medical Oncology
DX: D73.5 Infarction of spleen (principal)
CPT/HCPCS: 76700

== ENCOUNTER 2021-08-15 09:41 | Outpatient (REF) | payer OTHER, SELFPAY ==
[2021-08-15 14:38] LABS: CT PCR NOT DETECTED (Not Detect.); NG PCR NOT DETECTED (Not Detect.)
[2021-08-16 09:18] LABS: BV Int Neg Control Negative (Negative); BV Int Pos Control Positive (Positive)
== END 2021-08-15 09:42 | disposition home or self-care (01) ==
LOC: HO.LAB 09:41
PROVIDERS: PCP Internal Medicine; Visit Provider Obstetrics & Gynecology
DX: Z01.411 Encounter for gynecological examination (general) (routine) with abnormal findings (principal); R10.2 Pelvic and perineal pain; N93.9 Abnormal uterine and vaginal bleeding, unspecified; Z87.42 Personal history of other diseases of the female genital tract
CPT/HCPCS: 87480; 87491; 87510; 87591; 87624; 87660; 88142; 99202

== ENCOUNTER 2021-11-21 14:10 | Outpatient (REF) | payer OTHER, SELFPAY ==
--- NOTE | ~2021-11-21 | US_ITS ---
EXAMINATION: US PELVIS CLINICAL INFORMATION: Abnormal uterine and vaginal bleeding. COMPARISON: None. TECHNIQUE: Ultrasound of the pelvis is performed using both transabdominal and transvaginal transducers along with Doppler. Transabdominal and transvaginal imaging of pelvis is performed due to inadequate visualization transabdominally. FINDINGS: Uterus: The uterus is anteverted, anteflexed and measures 9.4 cm in length, 3.6 cm in AP and 4.9 cm in transverse dimension. The double wall endometrial thickness is 0.5 cm. The uterus is smooth in contour and has normal myometrial echogenicity. There is a hypoechoic lesion in the left and posterior upper body of the uterus measuring 1.4 x 1.3 x 1.6 cm. Adnexa: Both ovaries are visualized. There is normal color flow to the adnexa. There is no ovarian torsion. There is no pelvic ascites or fluid collection. Right ovary measures 3.5 x 1.7 x 1.6 cm and volume 5.0 mL Left ovary measures 4.2 x 2.2 x 2.7 cm and volume 13.1 mL. There are anechoic cysts measuring 2.0 x 1.4 x 1.5 cm and 2.4 x 1.8 x 1.9 cm. There is trace amount of free fluid in the cul-de-sac. US/US pelvic and transvaginal IMPRESSION: Left ovarian cysts. Right ovary is unremarkable. Solitary uterine fibroid measuring 1.6 cm. There is trace free fluid in the pelvis.
== END 2021-11-21 14:11 | disposition home or self-care (01) ==
LOC: HO.US 14:10
PROVIDERS: Visit Provider Obstetrics & Gynecology
DX: N93.9 Abnormal uterine and vaginal bleeding, unspecified (principal)
CPT/HCPCS: 76830; 76856

== ENCOUNTER 2021-12-06 11:14 | Outpatient (REF) | payer OTHER, SELFPAY | END 2021-12-06 11:15 | disposition home or self-care (01) | LOC: HO.LNP 11:14 | PROVIDERS: Visit Provider Obstetrics & Gynecology | DX: Z11.3 Encounter for screening for infections with a predominantly sexual mode of transmission (principal); N93.9 Abnormal uterine and vaginal bleeding, unspecified | CPT/HCPCS: 99212 ==

== ENCOUNTER 2021-12-06 11:22 | Outpatient (REF) | payer OTHER, SELFPAY ==
[2021-12-06 11:56] LABS: Hematocrit 42.6 % (37.0-47.0); Hemoglobin 14.4 g/dl (12.0-16.0); Mean Corpuscular HGB Conc 33.8 g/dl (31.0-35.0); Mean Corpuscular Hemoglobin 32.4 pg (27.0-33.0); Mean Corpuscular Volume 95.9 fL (80.0-98.0); Mean Platelet Volume 9.6 fL (9.4-12.3); Platelet Count 280 X10*3/uL (160-400); Red Blood Count 4.44 X10*6/uL (4.20-5.50); Red Cell Distribution Width 12.1 % (11.0-16.0); White Blood Count 4.3 X10*3/uL (4.8-10.8)
[2021-12-06 12:50] LABS: HCG Quantitative < 2 mIU/mL; TSH reflex Free T4 0.92 uIU/mL (0.32-4.0)
[2021-12-06 13:13] LABS: CT PCR NOT DETECTED (Not Detect.); NG PCR NOT DETECTED (Not Detect.)
[2021-12-07 06:18] LABS: Syphilis Screen Nonreactive (Nonreactive)
[2021-12-07 07:25] LABS: HIV AB/AG Nonreactive (Nonreactive); HIV Num 1 0.06 S/CO (0.00-0.99); Hepatitis B Surface Antigen Negative (Negative); ~HepC Num1 0.08 S/CO (0.00-0.79); ~Hepatitis C Antibody Nonreactive (Nonreactive)
[2021-12-07 08:42] LABS: BV Int Neg Control Negative (Negative); BV Int Pos Control Positive (Positive)
== END 2021-12-06 11:23 | disposition home or self-care (01) ==
LOC: HO.LAB 11:22
PROVIDERS: PCP Internal Medicine; Visit Provider Obstetrics & Gynecology
DX: Z11.4 Encounter for screening for human immunodeficiency virus [HIV] (principal); Z11.3 Encounter for screening for infections with a predominantly sexual mode of transmission; N93.9 Abnormal uterine and vaginal bleeding, unspecified; Z20.2 Contact with and (suspected) exposure to infections with a predominantly sexual mode of transmission
CPT/HCPCS: 84443; 84702; 85027; 86780; 86803; 87340; 87389; 87480; 87491; 87510; 87591; 87660

== ENCOUNTER 2022-03-06 16:42 | Outpatient (REF) | payer OTHER, SELFPAY ==
--- NOTE | ~2022-03-06 | XR_ITS ---
EXAMINATION: XR cervical spine 3V CLINICAL INFORMATION: Pain COMPARISON: None TECHNIQUE: 3 views of the cervical spine were obtained. FINDINGS: The cervical spine is visualized to the level of C7 on the lateral view. Vertebral body alignment is maintained. Vertebral body heights are maintained. Disc space heights are maintained. Lateral masses of C1 are well aligned on C2. Visualized portion of the dens is intact. No prevertebral soft tissue swelling. XR/XR cervical spine 3V IMPRESSION: * No significant degenerative disc disease.
== END 2022-03-06 16:43 | disposition home or self-care (01) ==
LOC: HO.XRAY 16:42
PROVIDERS: PCP Internal Medicine; Visit Provider Nurse Practitioner Family
DX: M54.2 Cervicalgia (principal)
CPT/HCPCS: 72040

== ENCOUNTER → 2022-04-18 11:01 | Outpatient (BNVA) | payer OTHER, SELFPAY | PROVIDERS: PCP Internal Medicine; Visit Provider Obstetrics & Gynecology | DX: N93.9 Abnormal uterine and vaginal bleeding, unspecified (principal) | CPT/HCPCS: 81025; 99212 ==

== ENCOUNTER 2022-05-17 11:00 | Outpatient (RCR) | payer OTHER, SELFPAY ==
--- NOTE | 2022-03-20 13:05 | MHC.PT.EP ---
[facility] [place] Office [place] Office [place] Office [address] [phone] F: [phone] F: [phone] F: [phone] F: [phone] Physical Therapy Plan of Care Date of Evaluation: Date of Surgery: Diagnosis: cervicalgia Assessment: 26 y/o RHD female referred to PT with cervicalgia. S/s consistent with cervical derangement resulting in pain and difficulty with prolonged sitting, supine position, sleeping, and looking up/down secondary to decreased cervical AROM, decreased scapular strength, increased pain, TTP scalenes muscles, and impaired postural awareness. She would benefit from reduction of derangement sx and stabilization exercises 2x/week for 5 weeks to address impairments, implement HEP, and optimize functional mobility. Frequency and Duration: The patient will be seen 2x/week for 5 weeks Short Term Goals: 3 weeks Compliant with HEP I with lumbar roll in sitting Demonstrate centralization of sx Extrusion Press Supervisor Goals: 5 weeks I with HEP and self management of sx Improve scapular strength to 4/5 to facilitate prolonged positions wiht pain < 3/10 Pt will be able to sleep through the night with pain < 3/10 Treatment Plan: Modalities to reduce pain, spasms and effusion. Manual therapy to restore motion and function. Therapeutic exercise to improve strength and flexibility. Neuromuscular re-education for posture and balance. Therapeutic activities to return to functional activities of daily living. Electronically signed by: Amy Holbrook PT Please sign and return to therapist. Thank you for your referral.
--- NOTE | 2022-06-19 12:18 | MHC.PT.DC ---
[facility] [place] Office [place] Office [place] Office [address] Lisa Burks [address] [phone] F: [phone] F: [phone] F: [phone] F: [phone] Physical Therapy Discharge Report Diagnosis: cervicalgia Date of Surgery: Date of Evaluation: 03/20/22 Date of Discharge: 06/19/22 Treatments to Date: 7 Cancellations to Date: 4 No Shows to Date: 2 Discharge Status: Independent with HEP Visit Non-compliance Discharge Summary: Pt with poor attendance and is d/c secondary to noncompliance with scheduling policy. At time of last visit, she had been making progress with strength and I with HEP Electronically signed by: Amy Holbrook PT Please sign and return to therapist. Thank you for your referral.
== END 2022-06-19 12:18 | disposition home or self-care (01) ==
LOC: HO.PT 11:00
PROVIDERS: PCP Internal Medicine; Visit Provider Nurse Practitioner Family
DX: M54.2 Cervicalgia (principal)
CPT/HCPCS: 97014; 97110; 97140; 97161; 97530

== ENCOUNTER 2022-06-07 13:33 | Outpatient (REF) | payer OTHER, SELFPAY ==
--- NOTE | ~2022-06-07 | MR_ITS ---
EXAMINATION: MR CERVICAL SPINE WITHOUT CONTRAST CLINICAL INFORMATION: Cervical radiculopathy, right arm pain, neck pain COMPARISON: None TECHNIQUE: MRI of the cervical spine was obtained using routine sequences without contrast. FINDINGS: Somewhat motion degraded examination. Normal anatomic alignment. No suspicious marrow signal or focal osseous lesion. The vertebral body heights are maintained. Partial disc desiccation with preservation of disc space height at C5-C6. No signal abnormality of the cervical cord within the limitations of motion Limited evaluation of the soft tissues of the neck without demonstrated abnormalities. The flow voids of the major cervical vessels are maintained. Normal appearance of the cervicomedullary junction and visualized posterior fossa SPINAL LEVELS: C2-C3: Mild facet arthropathy. No significant spinal canal or neural foraminal narrowing C3-C4: Mild facet arthropathy. No significant spinal canal or neural foraminal narrowing U C4-C5: Mild facet and uncovertebral hypertrophy. Mild bilateral neural foraminal narrowing. No significant spinal canal stenosis C5-C6: Mild facet and uncovertebral hypertrophy. Mild bilateral neural foraminal narrowing. No significant spinal canal stenosis C6-C7: No significant spinal canal or neural foraminal narrowing C7-T1: No significant spinal canal or neural foraminal narrowing uterus was MR/MR cervical spine wo con IMPRESSION: Mild degenerative changes of the cervical spine without significant spinal canal stenosis or high-grade neural foraminal narrowing.
== END 2022-06-07 13:34 | disposition home or self-care (01) ==
LOC: HO.MRI 13:33
PROVIDERS: PCP Internal Medicine; Visit Provider Internal Medicine
DX: M54.12 Radiculopathy, cervical region (principal)
CPT/HCPCS: 72141

== ENCOUNTER 2022-06-17 13:01 | Outpatient (REF) | payer OTHER, SELFPAY ==
--- NOTE | ~2022-06-17 | US_ITS ---
EXAM: Pelvic Ultrasound CLINICAL INDICATION: Abnormal uterine bleeding COMPARISON: Pelvic ultrasound 11/21/2021 TECHNIQUE: The pelvis was evaluated using transabdominal and transvaginal imaging. FINDINGS: The uterus measures 7.6 x 3.2 x 4.5 cm in longitudinal by AP by transverse dimension. The endometrial stripe is not thickened and measures 0.7 cm. 1.8 cm posterior fundal fibroid demonstrated (previously 1.6 cm). The left ovary measures approximately 3.3 x 1.9 x 1.9 cm and is normal. The right ovary measures approximately 3.4 x 2.0 x 1.7 cm and is also normal. There are no abnormal adnexal masses. There is no free fluid in the pelvis. US/US pelvic and transvaginal IMPRESSION: 1. Normal thickness endometrial stripe. 2. 1.8 cm posterior fundal fibroid.
== END 2022-06-17 13:02 | disposition home or self-care (01) ==
LOC: HO.US 13:01
PROVIDERS: PCP Internal Medicine; Visit Provider Obstetrics & Gynecology
DX: D21.9 Benign neoplasm of connective and other soft tissue, unspecified (principal)
CPT/HCPCS: 76830; 76856